=== PATIENT | male | born 1950 | race Asian ===

== ENCOUNTER 2017-05-31 12:44 | Day surgery (SDC) | payer BC ==
[~2017-05-31] VITALS: Ht 167.6 cm; Wt 79.1 kg
[~2017-05-31 12:44] MED LIST: ASCO-96 PO; ASPI-496 PO; BEE550CA PO; BIFI4CAP PO; CALC1CAP8 PO; GLUC1CAP18 PO; VITA1CAP PO; VITA400C43 PO; focus PO
[2017-05-31] MEDS ORDERED: MIDAZOLAM 1 MG/ML, 2ML ONE (12:57)
[2017-05-31] MEDS ORDERED: FENTANYL PF 100 MCG/2ML ONE ×4 (12:57→16:55)
[2017-05-31] MEDS ORDERED: PROPOFOL 10 MG/ML, 20ML ONE (12:58)
[2017-05-31] MEDS ORDERED: ROCURONIUM 10 MG/ML ONE (12:59)
[2017-05-31] MEDS ORDERED: LACTATED RINGERS 1,000 ML IV SCH (12:59)
[2017-05-31] MEDS ORDERED: CEFAZOLIN 1,000 MG ONE ×2 (13:00)
[2017-05-31] MEDS ORDERED: NEOSTIGMINE 1 MG/ML, 10ML ONE (13:00)
[2017-05-31 13:21] VITALS: BP 126/83
[2017-05-31] MEDS ORDERED: BUPIVACAINE/PF 0.5% ONE (14:29)
[2017-05-31] MEDS ORDERED: ONDANSETRON 2MG/ML, 2ML IVPush PRN (15:00)
[2017-05-31] MEDS ORDERED: ACETAMINOPHEN 325 MG TABLET PO PRN (15:00)
[2017-05-31] MEDS ORDERED: PROMETHAZINE 25 MG/ML, 1ML IV PRN (15:00)
[2017-05-31] MEDS ORDERED: LABETALOL 5MG/ML, 20ML IV PRN (15:00)
[2017-05-31] MEDS ORDERED: OXYcodone 5 MG/5 ML ORAL.SOL UDC PO PRN (15:00)
[2017-05-31] MEDS ORDERED: MEPERIDINE/PF 25MG/0.5ML IVPush PRN (15:00)
[2017-05-31] MEDS ORDERED: hydrALAzine 20 MG/ML, 1ML IV PRN (15:00)
[2017-05-31] MEDS ORDERED: GLYCOPYRROLATE 0.4 MG/2 ML, 2ML ONE (15:10)
[2017-05-31] MEDS ORDERED: PHENYLEPHRINE 10 MG/ML ONE (15:10)
[2017-05-31] MEDS ORDERED: BUPIVACAINE/PF 0.25% ONE (15:11)
[2017-05-31] MEDS ORDERED: BUPIVACAINE/PF 0.25% INFIL ONE (15:45)
[2017-05-31] MEDS ORDERED: HYDROmorphone 1 MG/ML, 1ML ONE (16:28)
[2017-05-31] MEDS ORDERED: ACETAMINOPHEN 650 MG/20.3 ML UDC ONE (16:28)
[2017-05-31] MEDS ORDERED: OXYcodone 5 MG/5 ML ORAL.SOL UDC ONE (16:28)
[2017-05-31] MEDS: HYDROmorphone 1 MG/ML, 1ML IV PRN ×2 (16:30→16:47)
[2017-05-31] MEDS: FENTANYL PF 100 MCG/2ML IV PRN ×4 (16:40→17:09)
== END 2017-05-31 18:01 ==
LOC: OUT 12:44
PROVIDERS: ATTEND Orthopaedic Surgery
DX: G56.01 Carpal tunnel syndrome, right upper limb (principal); G56.21 Lesion of ulnar nerve, right upper limb; Z79.82 Long term (current) use of aspirin; Z88.5 Allergy status to narcotic agent; Z88.8 Allergy status to other drugs, medicaments and biological substances
CPT/HCPCS: 64718; 64721; J0690; J1170; J2250; J2370; J2704; J2710; J3010; J3490; J7120

== ENCOUNTER → 2017-09-18 | Outpatient (CLI) | payer BC | LOC: STAR 11:27 | PROVIDERS: ATTEND Orthopaedic Surgery | DX: Z01.818 Encounter for other preprocedural examination (principal); G56.02 Carpal tunnel syndrome, left upper limb | CPT/HCPCS: 93005 ==

== ENCOUNTER 2017-09-25 11:47 | Day surgery (SDC) | payer BC ==
[~2017-09-25] VITALS: Ht 167.6 cm; Wt 75.6 kg
[~2017-09-25 11:47] MED LIST changes: +BUPIVACAINE/PF 0.5% ONE; +EPINEPHRINE 1 MG/ML, 1ML ONE
[2017-09-25] MEDS ORDERED: LACTATED RINGERS 1,000 ML IV SCH (12:33)
[2017-09-25 12:37] VITALS: BP 120/82
[2017-09-25] MEDS ORDERED: LIDOCAINE-MPF 1%, 2ML INFIL ONE (13:00)
[2017-09-25] MEDS ORDERED: PROPOFOL 10 MG/ML, 20ML ONE (13:24)
[2017-09-25] MEDS ORDERED: CEFAZOLIN 1,000 MG ONE ×2 (13:24)
[2017-09-25] MEDS ORDERED: LIDOCAINE-MPF 2% ,5ML ONE (13:24)
[2017-09-25] MEDS ORDERED: DEXAMETHASONE 4 MG/ML, 1ML ONE ×2 (13:29)
[2017-09-25] MEDS ORDERED: ONDANSETRON 2MG/ML, 2ML ONE (13:30)
[2017-09-25] MEDS ORDERED: morphine SULFATE 10 MG/ML, 1ML IV PRN (14:00)
[2017-09-25] MEDS ORDERED: ONDANSETRON 2MG/ML, 2ML IVPush PRN (14:00)
[2017-09-25] MEDS ORDERED: MEPERIDINE/PF 25MG/0.5ML IVPush PRN (14:00)
[2017-09-25] MEDS ORDERED: FENTANYL PF 100 MCG/2ML IV PRN (14:00)
[2017-09-25] MEDS ORDERED: OXYcodone 5 MG/5 ML ORAL.SOL UDC PO PRN (14:00)
[2017-09-25] MEDS ORDERED: OXYcodone 5 MG/5 ML ORAL.SOL UDC ONE (14:00)
== END 2017-09-25 15:25 ==
LOC: OUT 11:47
PROVIDERS: ATTEND Orthopaedic Surgery
DX: G56.02 Carpal tunnel syndrome, left upper limb (principal); Z87.39 Personal history of other diseases of the musculoskeletal system and connective tissue; Z88.5 Allergy status to narcotic agent; Z88.8 Allergy status to other drugs, medicaments and biological substances
CPT/HCPCS: 64721; J0171; J0690; J1100; J2405; J2704; J3490